=== PATIENT | female | born 1975 | race Caucasian/White ===

== ENCOUNTER 2022-05-28 16:17 | Emergency (ER) | payer OTHER, SELFPAY ==
[2022-05-28 16:35] VITALS: BP 141/86; PULSE 88; RESP 18; TEMP 36.3; O2SAT 100
--- NOTE | 2022-05-28 16:39 | ED.SKABFB ---
HPI - Skin/Abscess/Foreign Bdy General Chief complaint: Skin/Abscess/Foreign Body Stated complaint: poss spider bite finger Time Seen by Provider: 05/28/22 16:39 Source: patient, RN notes reviewed and old records reviewed Mode of arrival: ambulatory Limitations: no limitations History of Present Illness HPI narrative: 46 year old female who presents to express care with complaints of bite to her ring finger which happened sometime during the night Friday. She has what appears to be bite of some kind to dorsal DIP aspect of left ring finger with purplish ring with small inner scab with surrounding redness. Patient denies any known fevers, chills or sweats,states she feels like her finger is warmer that surrounding fingers, no acute warmth, drainage or any weeping of skin on left ring finger. Patient reports that she has cleansed her finger with antibacterial soap. MD complaint: insect bite/sting Onset (ago): day(s) (2) Tetanus up to date: no Location: L hand (dorsal ring finger) Severity scale (1-10): 6 ( ) Quality: other (throbbing) Pain Consistency: constant Treatments prior to arrival: other (cleansing with antibacterial soap) Related Data Home Medications Medication Instructions Recorded Confirmed alprazolam 0.5 mg tablet,extended 0.5 mg PO PRN PRN Anxiety 05/28/22 05/28/22 release 24 hr pantoprazole 40 mg tablet,delayed 40 mg PO DAILY 05/28/22 05/28/22 release phentermine 37.5 mg tablet 37.5 mg PO DAILY 05/28/22 05/28/22 sertraline 100 mg tablet 100 mg PO DAILY 05/28/22 05/28/22 sumatriptan succinate 50 mg tablet 50 mg PO PRN PRN Migraine Headache 05/28/22 05/28/22 topiramate 50 mg tablet 50 mg PO BID 05/28/22 05/28/22 Allergies Allergy/AdvReac Type Severity Reaction Status Date / Time bee venom protein (honey bee) AdvReac Severe Swelling Verified 05/28/22 16:40 of Lip/Tongue/Throat Review of Systems Review of Systems: CONSTITUTIONAL: Denies fever, chills, or sweats. CARDIOVASCULAR: Denies chest pain, palpitations, or edema. RESPIRATORY: Denies cough or dyspnea. GASTROINTESTINAL: Denies abdominal pain, nausea, vomiting SKIN: Reports redness and swelling some discomfort to dorsal aspect of her left ring finger. Denies purulent drainage,circular scabbing center with surrounding redness MUSCULOSKELETAL: Denies myalgia. NEUROLOGIC: Denies headache, numbness All systems reviewed & are unremarkable except as noted in HPI and below PMFSH Past Medical History Medical History (Updated 05/28/22 @ 17:14 by Jessica Chapman NP) Anxiety with depression GERD (gastroesophageal reflux disease) Migraine Surgical History Surgical History (Updated 05/28/22 @ 17:14 by Jessica Chapman NP) H/O tubal ligation S/P tonsillectomy and adenoidectomy Social History Social History (Updated 05/28/22 @ 17:22 by Jessica Chapman NP) Smoking packs per day: 0.5 Smoking cigarettes per day: 10.0 Smoking status: Current every day smoker Alcohol intake: current Alcohol use details: social Substance use type: does not use Gender identity (if verbalized by the patient): Female Comments At time of signature, agree with nursing past medical, surgical, social and family history. There is no relevant family history pertinent to the presenting complaint Exam Narrative: GENERAL: Well-appearing, well-nourished, and in no acute distress. HEAD: Normocephalic, atraumatic. EYES: PERRLA and EOMI. ENT: Nares clear, no rhinorrhea or epistaxis. Mucous membranes moist.TM's normal with good light reflex, throat pink with no lesions or exudates,tonsils absent NECK: Supple.no lymphadenopathy CHEST: Clear to auscultation. No respiratory distress.SAO2 100% on room air HEART: Regular rate and rhythm. No murmur heard. Normal peripheral pulses. ABDOMEN: Soft, nontender, nondistended, normal active bowel sounds. EXTREMITIES: Normal range of motion. No edema. SKIN: Warm, dry. Erythema, induration, tenderness,mild warmth of di
[2022-05-28] MEDS: TETANUS,DIPHTHERIA,AC PERTUSSIS ADULT (0.5 ML) BOOSTRIX IM (16:51)
== END 2022-05-28 16:59 | disposition home or self-care (01) ==
PROVIDERS: Emergency Provider Registered Nurse; PCP Physician Assistant Medical
DX: L03.012 Cellulitis of left finger (principal); S60.465A Insect bite (nonvenomous) of left ring finger, initial encounter; W57.XXXA Bitten or stung by nonvenomous insect and other nonvenomous arthropods, initial encounter; Z23 Encounter for immunization; F17.210 Nicotine dependence, cigarettes, uncomplicated; K21.9 Gastro-esophageal reflux disease without esophagitis; F41.9 Anxiety disorder, unspecified; F32.A Depression, unspecified
CPT/HCPCS: 90471; 90715; 99203; G0463